=== PATIENT | male | born 1975 | race Two or more races ===

== ENCOUNTER 2024-07-17 15:54 | Emergency (ER) | payer BC ==
[~2024-07-17] VITALS: Ht 175.3 cm; Wt 90.7 kg
[2024-07-17] MEDS ORDERED: ORPHENADRINE CITRATE 30 MG/ML AMPUL IM STA (17:20)
[2024-07-17] MEDS ORDERED: KETOROLAC TROMETHAMINE 30 MG VIAL IM STA (19:10)
== END 2024-07-17 19:36 | disposition home or self-care (01) ==
LOC: ER 15:56
DX: S09.8XXA Other specified injuries of head, initial encounter (principal); V00.131A Fall from skateboard, initial encounter; Y93.89 Activity, other specified; Y92.89 Other specified places as the place of occurrence of the external cause; M54.2 Cervicalgia